=== PATIENT | female | born 1965 | race Hispanic/Latino ===

== ENCOUNTER 2023-09-07 15:20 | Emergency (ER) | payer BC ==
[2023-09-07] MEDS ORDERED: Ibuprofen 200 MG TAB ONE (15:28)
== END 2023-09-07 16:16 | disposition home or self-care (01) ==
LOC: BURERS 15:20
DX: S93.401A Sprain of unspecified ligament of right ankle, initial encounter (principal); S63.602A Unspecified sprain of left thumb, initial encounter; R29.700 NIHSS score 0; F17.210 Nicotine dependence, cigarettes, uncomplicated; W17.2XXA Fall into hole, initial encounter
CPT/HCPCS: 29125; 29515

== ENCOUNTER 2023-09-23 14:43 | Emergency (ER) | payer BC ==
[2023-09-23] MEDS ORDERED: Ipratropium/Albuterol 3 ML NEB ONE (15:33)
== END 2023-09-23 15:07 | disposition home or self-care (01) ==
LOC: BURERS 14:43
DX: F41.0 Panic disorder [episodic paroxysmal anxiety] (principal); G44.209 Tension-type headache, unspecified, not intractable; F17.210 Nicotine dependence, cigarettes, uncomplicated
CPT/HCPCS: 99283; J7620